=== PATIENT | female | born 1995 | race Caucasian/White ===

== ENCOUNTER 2021-08-30 08:27 | Observation (INO) | payer MEDICAID ==
[2021-08-30] MEDS ORDERED: GLYB2.5T8 PO (08:48)
[2021-08-30] MEDS ORDERED: METF-370 PO ×2 (08:48)
== END 2021-08-30 09:37 | disposition home or self-care (01) ==
LOC: UNDOADMOB 08:27 → LDRP 08:27 → UNDODISOB 09:37
PROVIDERS: ADMIT Obstetrics & Gynecology; ATTEND Obstetrics & Gynecology
DX: O24.419 Gestational diabetes mellitus in pregnancy, unspecified control (principal); Z3A.31 31 weeks gestation of pregnancy
CPT/HCPCS: 59025; 76818; 81002; 82948; 82962; 94760; G0378

== ENCOUNTER 2021-09-02 10:48 | Observation (INO) | payer MEDICAID ==
[~2021-09-02 10:48] MED LIST: GLYB2.5T8 PO; METF-370 PO
== END 2021-09-02 12:20 | disposition home or self-care (01) ==
LOC: LDRP 10:48 → UNDOADMOB 10:48 → LDRP 10:53 → UNDODISOB 12:20
PROVIDERS: ADMIT Obstetrics & Gynecology; ATTEND Obstetrics & Gynecology
DX: O24.419 Gestational diabetes mellitus in pregnancy, unspecified control (principal); Z3A.31 31 weeks gestation of pregnancy
CPT/HCPCS: 59025; 76818; 82948; 82962; 94760; G0378

== ENCOUNTER 2021-09-06 07:29 | Observation (INO) | payer MEDICAID | END 2021-09-06 13:36 | disposition home or self-care (01) | LOC: LDRP 11:09 → UNDOADMOB 11:18 → UNDODISOB 13:36 | PROVIDERS: ADMIT Obstetrics & Gynecology Obstetrics; ATTEND Obstetrics & Gynecology Obstetrics | DX: O24.419 Gestational diabetes mellitus in pregnancy, unspecified control (principal); Z3A.32 32 weeks gestation of pregnancy | CPT/HCPCS: 59025; 76818; 81002; 82948; 82962; 94760; G0378 ==

== ENCOUNTER 2021-09-09 07:58 | Observation (INO) | payer MEDICAID ==
[~2021-09-09] VITALS: Ht 160 cm; Wt 100.7 kg
[2021-09-09] MEDS ORDERED: PREN-96 PO (08:58)
== END 2021-09-09 09:46 | disposition home or self-care (01) ==
LOC: UNDOADMOB 07:58 → LDRP 07:58 → UNDODISOB 09:46
PROVIDERS: ADMIT Obstetrics & Gynecology; ATTEND Obstetrics & Gynecology
DX: O24.419 Gestational diabetes mellitus in pregnancy, unspecified control (principal); Z3A.32 32 weeks gestation of pregnancy
CPT/HCPCS: 59025; 76818; 81002; 82948; 82962; 94760; G0378

== ENCOUNTER 2021-09-14 07:33 | Observation (INO) | payer MEDICAID ==
[~2021-09-14] VITALS: Ht 160 cm; Wt 100.7 kg
[~2021-09-14 07:33] MED LIST changes: +PREN-96 PO
== END 2021-09-14 15:44 | disposition home or self-care (01) ==
LOC: LDRP 13:44 → UNDOADMOB 13:49 → UNDODISOB 15:44
PROVIDERS: ADMIT Obstetrics & Gynecology; ATTEND Obstetrics & Gynecology
DX: O24.419 Gestational diabetes mellitus in pregnancy, unspecified control (principal); Z3A.33 33 weeks gestation of pregnancy
CPT/HCPCS: 59025; 76818; 81002; 82948; 82962; 94760; G0378

== ENCOUNTER 2021-09-16 08:09 | Observation (INO) | payer MEDICAID ==
[~2021-09-16] VITALS: Ht 160 cm; Wt 100.7 kg
== END 2021-09-16 09:40 | disposition home or self-care (01) ==
LOC: LDRP 08:09 → UNDOADMOB 08:13 → LDRP 08:13 → UNDODISOB 09:40
PROVIDERS: ADMIT Obstetrics & Gynecology; ATTEND Obstetrics & Gynecology
DX: O24.419 Gestational diabetes mellitus in pregnancy, unspecified control (principal); O36.8930 Maternal care for other specified fetal problems, third trimester, not applicable or unspecified; Z3A.33 33 weeks gestation of pregnancy
CPT/HCPCS: 59025; 76818; 81002; 82948; 82962; G0378

== ENCOUNTER 2021-09-20 08:36 | Observation (INO) | payer MEDICAID | END 2021-09-20 10:07 | disposition home or self-care (01) | LOC: LDRP 08:59 → UNDOADMOB 09:06 → LDRP 09:06 → UNDODISOB 10:07 | PROVIDERS: ADMIT Obstetrics & Gynecology Obstetrics; ATTEND Obstetrics & Gynecology Obstetrics | DX: O24.415 Gestational diabetes mellitus in pregnancy, controlled by oral hypoglycemic drugs (principal); Z3A.34 34 weeks gestation of pregnancy; Z79.84 Long term (current) use of oral hypoglycemic drugs | CPT/HCPCS: 59025; 76818; 81002; 82948; 82962; 94760; G0378 ==

== ENCOUNTER 2021-09-23 08:49 | Observation (INO) | payer MEDICAID ==
[~2021-09-23] VITALS: Ht 160 cm; Wt 100.7 kg
== END 2021-09-23 17:02 | disposition home or self-care (01) ==
LOC: LDRP 14:35 → UNDOADMOB 14:45
PROVIDERS: ADMIT Obstetrics & Gynecology; ATTEND Obstetrics & Gynecology
DX: O24.419 Gestational diabetes mellitus in pregnancy, unspecified control (principal); O12.03 Gestational edema, third trimester; Z3A.34 34 weeks gestation of pregnancy
CPT/HCPCS: 59025; 76818; 81002; 82948; 82962; 94760; G0378

== ENCOUNTER 2021-09-27 10:00 | Observation (INO) | payer MEDICAID | END 2021-09-27 11:35 | disposition home or self-care (01) | LOC: UNDOADMOB 10:00 → LDRP 10:00 → UNDODISOB 11:35 | PROVIDERS: ADMIT Obstetrics & Gynecology Obstetrics; ATTEND Obstetrics & Gynecology Obstetrics | DX: O24.419 Gestational diabetes mellitus in pregnancy, unspecified control (principal); Z3A.35 35 weeks gestation of pregnancy | CPT/HCPCS: 59025; 76818; 81002; 82962; G0378 ==

== ENCOUNTER 2021-09-29 09:17 | Observation (INO) | payer MEDICAID ==
[~2021-09-29] VITALS: Ht 160 cm; Wt 104.8 kg
[2021-09-29 10:10] LABS: Basophils # (auto) 0 10 ^3/uL (0-0.2); Eosinophils # (auto) 0 10 ^3/uL (0-0.8); Monocytes # (auto) 0.5 10 ^3/uL (0-1.3); Neutrophils # (auto) 5.1 10 ^3/uL (1.6-8.6); Nucleated Red Blood Cells % 0.1 %
[2021-09-29 10:12] LABS: Basophils % (auto) 0.4 % (0.0-2.0); Eosinophils % (auto) 0.6 % (0.0-7.0); Hematocrit 29.5 % (36.0-46.0); Hemoglobin 9.6 g/dL (12.2-16.2); Lymphocytes % (auto) 26.4 % (10.0-50.0); Mean Corpuscular Hemoglobin 26.1 pg (28.0-32.0); Mean Corpuscular Hgb Conc. 32.6 g/dL (32.0-36.0); Mean Corpuscular Volume 79.9 fL (80.0-100.0); Monocytes % (auto) 6.5 % (0.0-12.0); Neutrophils % (auto) 66.1 % (37.0-80.0); Red Blood Cells 3.69 10^6/uL (4.0-5.20); Red Cell Distribution Width 15.7 % (11.8-14.3); White Blood Cell 7.7 10^3/uL (4.4-10.8)
[2021-09-29 10:31] LABS: Albumin 2.3 g/dL (3.4-5.0); Calcium 8.6 mg/dL (8.5-10.1)
[2021-09-29 10:35] LABS: BUN/Creatinine Ratio 8.8; Bilirubin, Total 0.2 mg/dL (0.2-1.0); Total Protein 6.4 g/dL (6.4-8.2); Uric Acid 4.6 mg/dL (2.6-6.0)
[2021-09-29 10:36] LABS: INR 0.87 (0.9-1.15); Partial Thromboplastin Time 27.7 sec (24.6-33.4)
[2021-09-29 10:37] LABS: Urine Bacteria FEW /hpf (None Seen); Urine Blood Negative /uL (Negative); Urine Mucus FEW (None Seen); Urine Specific Gravity 1.021 (1.001-1.035); Urine WBC 5 /hpf (0 - 5)
[2021-09-29 11:02] LABS: Protein, Urine 26.4 mg/dL (0.0-11.9)
== END 2021-09-29 11:35 | disposition home or self-care (01) ==
LOC: LDRP 09:17 → UNDOADMOB 09:17 → LDRP 09:36
PROVIDERS: ADMIT Obstetrics & Gynecology; ATTEND Obstetrics & Gynecology
DX: O24.419 Gestational diabetes mellitus in pregnancy, unspecified control (principal); O26.893 Other specified pregnancy related conditions, third trimester; R03.0 Elevated blood-pressure reading, without diagnosis of hypertension; Z3A.35 35 weeks gestation of pregnancy; Z79.899 Other long term (current) drug therapy
CPT/HCPCS: 36415; 59025; 80053; 81001; 81002; 82570; 82948; 82962; 84156; 84550; 85025; 85610; 85730; 94760; G0378

== ENCOUNTER 2021-10-01 11:15 | Observation (INO) | payer MEDICAID ==
[2021-10-01 16:07] LABS: Protein, Urine 12.1 mg/dL (0.0-11.9)
[2021-10-01 16:25] LABS: 24 Hr. Total Protein, Urine 260.1 mg/24 Hr (<149.1)
== END 2021-10-01 13:38 | disposition home or self-care (01) ==
LOC: UNDOADMOB 11:15 → LDRP 11:15
PROVIDERS: ADMIT Obstetrics & Gynecology; ATTEND Obstetrics & Gynecology
DX: O24.419 Gestational diabetes mellitus in pregnancy, unspecified control (principal); Z3A.35 35 weeks gestation of pregnancy
CPT/HCPCS: 59025; 76818; 81002; 82948; 82962; 84156; G0378

== ENCOUNTER 2021-10-04 08:20 | Observation (INO) | payer MEDICAID | END 2021-10-04 15:05 | disposition home or self-care (01) | LOC: UNDOADMOB 13:00 → LDRP 13:00 | PROVIDERS: ADMIT Obstetrics & Gynecology Obstetrics; ATTEND Obstetrics & Gynecology Obstetrics | DX: O24.419 Gestational diabetes mellitus in pregnancy, unspecified control (principal); O12.03 Gestational edema, third trimester; Z3A.36 36 weeks gestation of pregnancy | CPT/HCPCS: 59025; 76818; 81002; 82948; 82962; 94760; G0378 ==

== ENCOUNTER → 2021-10-06 | Outpatient (CLI) | payer MEDICAID ==
[2021-10-07 07:07] LABS: RPR Non Reactive (Non Reactive)
== END | disposition home or self-care (01) ==
LOC: LAB 09:32
PROVIDERS: ATTEND Obstetrics & Gynecology
DX: Z34.00 Encounter for supervision of normal first pregnancy, unspecified trimester (principal)
CPT/HCPCS: 84112; 86592

== ENCOUNTER 2021-10-11 07:34 | Observation (INO) | payer MEDICAID ==
[~2021-10-11] VITALS: Ht 160 cm; Wt 104.8 kg
[2021-10-11] MEDS ORDERED: FERR-20 PO (10:18)
== END 2021-10-11 09:25 | disposition home or self-care (01) ==
LOC: LDRP 09:00
PROVIDERS: ADMIT Obstetrics & Gynecology Obstetrics; ATTEND Obstetrics & Gynecology Obstetrics
DX: O24.419 Gestational diabetes mellitus in pregnancy, unspecified control (principal); Z3A.36 36 weeks gestation of pregnancy
CPT/HCPCS: 59025; 76818; 81002; 82948; 82962; 94760; G0378

== ENCOUNTER 2021-10-14 07:55 | Observation (INO) | payer MEDICAID ==
[~2021-10-14 07:55] MED LIST changes: +FERR-20 PO
[2021-10-14 10:20] LABS: Basophils # (auto) 0 10 ^3/uL (0-0.2); Eosinophils # (auto) 0.1 10 ^3/uL (0-0.8); Mean Corpuscular Hgb Conc. 31.7 g/dL (32.0-36.0); Monocytes # (auto) 0.6 10 ^3/uL (0-1.3); Neutrophils # (auto) 5.7 10 ^3/uL (1.6-8.6)
[2021-10-14 10:22] LABS: Basophils % (auto) 0.5 % (0.0-2.0); Eosinophils % (auto) 0.7 % (0.0-7.0); Hematocrit 31.6 % (36.0-46.0); Lymphocytes # (auto) 2.3 10 ^3/uL (0.4-5.4); Lymphocytes % (auto) 26.8 % (10.0-50.0); Mean Corpuscular Hemoglobin 25.6 pg (28.0-32.0); Mean Corpuscular Volume 80.8 fL (80.0-100.0); Nucleated Red Blood Cells % 0.1 %; Red Blood Cells 3.91 10^6/uL (4.0-5.20); Red Cell Distribution Width 16.5 % (11.8-14.3); White Blood Cell 8.7 10^3/uL (4.4-10.8)
[2021-10-14 10:26] LABS: Urine Bacteria MANY /hpf (None Seen); Urine Blood Negative /uL (Negative); Urine Budding Yeast FEW /hpf (None Seen); Urine Specific Gravity 1.007 (1.001-1.035); Urine WBC 46 /hpf (0 - 5)
[2021-10-14 10:35] LABS: INR 0.88 (0.9-1.15); Partial Thromboplastin Time 29.3 sec (24.6-33.4)
[2021-10-14 11:10] LABS: Albumin 2.6 g/dL (3.4-5.0); Calcium 8.7 mg/dL (8.5-10.1)
[2021-10-14 11:14] LABS: BUN/Creatinine Ratio 10.8; Bilirubin, Total 0.3 mg/dL (0.2-1.0); Total Protein 6.6 g/dL (6.4-8.2); Uric Acid 4.5 mg/dL (2.6-6.0)
[2021-10-14 11:58] LABS: Protein, Urine 14.1 mg/dL (0.0-11.9)
== END 2021-10-14 12:11 | disposition home or self-care (01) ==
LOC: LDRP 07:55
PROVIDERS: ADMIT Obstetrics & Gynecology; ATTEND Obstetrics & Gynecology
DX: O24.415 Gestational diabetes mellitus in pregnancy, controlled by oral hypoglycemic drugs (principal); O62.9 Abnormality of forces of labor, unspecified; Z3A.36 36 weeks gestation of pregnancy; Z79.84 Long term (current) use of oral hypoglycemic drugs
CPT/HCPCS: 36415; 59025; 76818; 80053; 81001; 82570; 82962; 84156; 84550; 85025; 85610; 85730; G0378; 81002; 82948

== ENCOUNTER 2021-10-17 10:07 | Observation (INO) | payer MEDICAID ==
[~2021-10-17] VITALS: Ht 30.5 cm; Wt 0.5 kg
[2021-10-17 11:05] LABS: Urine Bacteria FEW /hpf (None Seen); Urine Blood Negative /uL (Negative); Urine Mucus FEW (None Seen); Urine Specific Gravity 1.017 (1.001-1.035); Urine WBC 124 /hpf (0 - 5)
[2021-10-17 11:14] LABS: Protein, Urine 17.9 mg/dL (0.0-11.9)
[2021-10-17 11:39] LABS: Protein, Urine 46.2 mg/dL (0.0-11.9)
[2021-10-17 11:43] LABS: 24 Hr. Total Protein, Urine 313.2 mg/24 Hr (<149.1)
[2021-10-17] MEDS ORDERED: LACTATED RINGER'S 1,000 ML IV ONE (14:45)
[2021-10-17] MEDS ORDERED: LABETALOL HCL 200 MG TAB PO SCH (15:30)
[2021-10-17] MEDS ORDERED: LABE100T4 PO (18:37)
== END 2021-10-17 19:00 | disposition home or self-care (01) ==
LOC: LDRP 10:07
PROVIDERS: ADMIT Obstetrics & Gynecology; ATTEND Obstetrics & Gynecology
DX: O24.419 Gestational diabetes mellitus in pregnancy, unspecified control (principal); Z3A.37 37 weeks gestation of pregnancy; Z79.899 Other long term (current) drug therapy
CPT/HCPCS: 59025; 76818; 81001; 81002; 82570; 82948; 82962; 84156; 94762; 96360; 96361; G0378

== ENCOUNTER 2021-10-19 07:07 | Observation (INO) | payer MEDICAID ==
[~2021-10-19 07:07] MED LIST changes: +LABE100T4 PO
== END 2021-10-19 10:00 | disposition home or self-care (01) ==
LOC: LDRP 08:04 → UNDOADMOB 08:04 → LDRP 08:30
PROVIDERS: ADMIT Obstetrics & Gynecology; ATTEND Obstetrics & Gynecology
DX: O13.3 Gestational [pregnancy-induced] hypertension without significant proteinuria, third trimester (principal); O24.419 Gestational diabetes mellitus in pregnancy, unspecified control; Z3A.37 37 weeks gestation of pregnancy
CPT/HCPCS: 59025; 76818; 81002; 82948; 82962; 94760; G0378

== ENCOUNTER 2021-10-21 10:45 | Observation (INO) | payer MEDICAID ==
[~2021-10-21] VITALS: Ht 160 cm; Wt 107.0 kg
[2021-10-22 10:54] LABS: Basophils # (auto) 0 10 ^3/uL (0-0.2); Eosinophils # (auto) 0 10 ^3/uL (0-0.8); Lymphocytes # (auto) 1.8 10 ^3/uL (0.4-5.4); Monocytes # (auto) 0.5 10 ^3/uL (0-1.3); White Blood Cell 7.6 10^3/uL (4.4-10.8)
[2021-10-22 10:56] LABS: Basophils % (auto) 0.2 % (0.0-2.0); Eosinophils % (auto) 0.6 % (0.0-7.0); Hematocrit 31.1 % (36.0-46.0); Lymphocytes % (auto) 23.4 % (10.0-50.0); Mean Corpuscular Hemoglobin 26.5 pg (28.0-32.0); Mean Corpuscular Hgb Conc. 32.1 g/dL (32.0-36.0); Mean Corpuscular Volume 82.6 fL (80.0-100.0); Monocytes % (auto) 6.5 % (0.0-12.0); Neutrophils # (auto) 5.2 10 ^3/uL (1.6-8.6); Neutrophils % (auto) 69.3 % (37.0-80.0); Nucleated Red Blood Cells % 0.2 %; Red Blood Cells 3.77 10^6/uL (4.0-5.20); Red Cell Distribution Width 19.3 % (11.8-14.3)
[2021-10-22 11:08] LABS: INR 0.87 (0.9-1.15); Partial Thromboplastin Time 27.7 sec (24.6-33.4)
[2021-10-22 11:09] LABS: Albumin 2.6 g/dL (3.4-5.0); Calcium 8.8 mg/dL (8.5-10.1); Potassium 4.1 mmol/L (3.5-5.1)
[2021-10-22 11:17] LABS: BUN/Creatinine Ratio 9.5; Bilirubin, Total 0.3 mg/dL (0.2-1.0); Total Protein 6.3 g/dL (6.4-8.2); Uric Acid 5.5 mg/dL (2.6-6.0)
[2021-10-22 12:16] LABS: Urine Bacteria MOD /hpf (None Seen); Urine Blood Negative /uL (Negative); Urine Mucus FEW (None Seen); Urine Specific Gravity 1.029 (1.001-1.035); Urine WBC 25 /hpf (0 - 5)
[2021-10-22 12:30] LABS: Amphetamine Screen, Urine NEGATIVE (NEGATIVE); Barbiturate Scree,Urine NEGATIVE (NEGATIVE); Benzodiazephine Screen, Urine NEGATIVE (NEGATIVE); Cannabinoid Screen, Urine NEGATIVE (NEGATIVE); Cocaine Screen, Urine NEGATIVE (NEGATIVE); Opiate Scree,Urine NEGATIVE (NEGATIVE); Phencyclidine Screen, Urine NEGATIVE (NEGATIVE)
[2021-10-22 12:56] LABS: Protein, Urine 43.2 mg/dL (0.0-11.9)
[2021-10-23 07:06] LABS: RPR Non Reactive (Non Reactive)
== END 2021-10-22 14:18 | disposition home or self-care (01) ==
LOC: LDRP 10-22 10:04 → UNDOADMOB 10-22 10:04 → LDRP 10-22 10:24
PROVIDERS: ADMIT Obstetrics & Gynecology; ATTEND Obstetrics & Gynecology
DX: O24.419 Gestational diabetes mellitus in pregnancy, unspecified control (principal); O13.3 Gestational [pregnancy-induced] hypertension without significant proteinuria, third trimester; O12.03 Gestational edema, third trimester; Z3A.37 37 weeks gestation of pregnancy
CPT/HCPCS: 36415; 59025; 80053; 80307; 81001; 81002; 82570; 84156; 84550; 85025; 85610; 85730; 86592; 86850; 86900; 86901; 94760; G0378

== ENCOUNTER 2021-10-24 10:12 | Observation (INO) | payer MEDICAID ==
[2021-10-24 11:30] LABS: Basophils # (auto) 0 10 ^3/uL (0-0.2); Basophils % (auto) 0.3 % (0.0-2.0); Eosinophils # (auto) 0 10 ^3/uL (0-0.8); Eosinophils % (auto) 0.6 % (0.0-7.0); Hematocrit 30.4 % (36.0-46.0); Hemoglobin 9.9 g/dL (12.2-16.2); Lymphocytes # (auto) 2.3 10 ^3/uL (0.4-5.4); Lymphocytes % (auto) 28.6 % (10.0-50.0); Mean Corpuscular Hemoglobin 27.2 pg (28.0-32.0); Mean Corpuscular Hgb Conc. 32.4 g/dL (32.0-36.0); Mean Corpuscular Volume 83.9 fL (80.0-100.0); Monocytes # (auto) 0.6 10 ^3/uL (0-1.3); Neutrophils # (auto) 5.1 10 ^3/uL (1.6-8.6); Neutrophils % (auto) 63.5 % (37.0-80.0); Red Blood Cells 3.63 10^6/uL (4.0-5.20); Red Cell Distribution Width 20.1 % (11.8-14.3); White Blood Cell 8.1 10^3/uL (4.4-10.8)
[2021-10-24 11:42] LABS: Albumin 2.5 g/dL (3.4-5.0); Calcium 8.4 mg/dL (8.5-10.1); Potassium 3.8 mmol/L (3.5-5.1)
[2021-10-24 11:44] LABS: INR 0.88 (0.9-1.15); Partial Thromboplastin Time 29.3 sec (24.6-33.4)
[2021-10-24 11:47] LABS: Protein, Urine 38.9 mg/dL (0.0-11.9)
[2021-10-24 11:47] LABS: BUN/Creatinine Ratio 11.3; Bilirubin, Total 0.2 mg/dL (0.2-1.0); Total Protein 6.2 g/dL (6.4-8.2); Uric Acid 5.6 mg/dL (2.6-6.0)
== END 2021-10-24 12:17 | disposition home or self-care (01) ==
LOC: LDRP 10:12
PROVIDERS: ADMIT Obstetrics & Gynecology; ATTEND Obstetrics & Gynecology
DX: O13.3 Gestational [pregnancy-induced] hypertension without significant proteinuria, third trimester (principal); Z3A.38 38 weeks gestation of pregnancy
CPT/HCPCS: 36415; 59025; 80053; 81002; 82570; 84156; 84550; 85025; 85610; 85730; 94760; G0378

== ENCOUNTER 2021-10-26 07:41 | Observation (INO) | payer MEDICAID ==
[2021-10-26 15:53] LABS: Basophils # (auto) 0.1 10 ^3/uL (0-0.2); Eosinophils # (auto) 0 10 ^3/uL (0-0.8); Mean Corpuscular Hemoglobin 26.7 pg (28.0-32.0); Monocytes # (auto) 0.6 10 ^3/uL (0-1.3)
[2021-10-26 15:55] LABS: Basophils % (auto) 0.7 % (0.0-2.0); Eosinophils % (auto) 0.5 % (0.0-7.0); Hematocrit 32.3 % (36.0-46.0); Hemoglobin 10.4 g/dL (12.2-16.2); Lymphocytes # (auto) 2.1 10 ^3/uL (0.4-5.4); Lymphocytes % (auto) 23.5 % (10.0-50.0); Mean Corpuscular Hgb Conc. 32.2 g/dL (32.0-36.0); Monocytes % (auto) 6.4 % (0.0-12.0); Neutrophils % (auto) 68.9 % (37.0-80.0); Nucleated Red Blood Cells % 0.2 %; Red Blood Cells 3.89 10^6/uL (4.0-5.20); White Blood Cell 8.8 10^3/uL (4.4-10.8)
[2021-10-26 15:59] LABS: Red Cell Distribution Width 20.5 % (11.8-14.3)
[2021-10-26 16:08] LABS: Urine Bacteria FEW /hpf (None Seen); Urine Blood 1+ /uL (Negative); Urine Mucus FEW (None Seen); Urine Specific Gravity 1.018 (1.001-1.035); Urine WBC 1 /hpf (0 - 5)
[2021-10-26 16:13] LABS: Amphetamine Screen, Urine NEGATIVE (NEGATIVE); Barbiturate Scree,Urine NEGATIVE (NEGATIVE); Benzodiazephine Screen, Urine NEGATIVE (NEGATIVE); Cannabinoid Screen, Urine NEGATIVE (NEGATIVE); Cocaine Screen, Urine NEGATIVE (NEGATIVE); Opiate Scree,Urine NEGATIVE (NEGATIVE); Phencyclidine Screen, Urine NEGATIVE (NEGATIVE)
[2021-10-26 16:16] LABS: Albumin 2.6 g/dL (3.4-5.0); Potassium 4.1 mmol/L (3.5-5.1); Uric Acid 5.3 mg/dL (2.6-6.0)
[2021-10-26 16:19] LABS: BUN/Creatinine Ratio 14.5; Bilirubin, Total 0.2 mg/dL (0.2-1.0); Total Protein 6.4 g/dL (6.4-8.2)
[2021-10-26 16:31] LABS: INR 0.87 (0.9-1.15); Partial Thromboplastin Time 29.1 sec (24.6-33.4)
[2021-10-27 06:06] LABS: RPR Non Reactive (Non Reactive)
== END 2021-10-26 15:36 | disposition home or self-care (01) ==
LOC: LDRP 13:33 → UNDOADMOB 13:33 → LDRP 13:45
PROVIDERS: ADMIT Obstetrics & Gynecology; ATTEND Obstetrics & Gynecology
DX: O24.419 Gestational diabetes mellitus in pregnancy, unspecified control (principal); Z20.822 Contact with and (suspected) exposure to COVID-19; O13.3 Gestational [pregnancy-induced] hypertension without significant proteinuria, third trimester; Z3A.38 38 weeks gestation of pregnancy; Z79.899 Other long term (current) drug therapy
CPT/HCPCS: 36415; 59025; 76818; 80053; 80307; 81001; 81002; 82948; 82962; 84550; 85025; 85610; 85730; 86592; 86850; 86900; 86901; 87426; 94760; G0378

== ENCOUNTER 2021-10-28 06:32 | Inpatient (IN) | payer MEDICAID ==
[~2021-10-28] VITALS: Ht 160 cm; Wt 106.6 kg
[2021-10-28] MEDS ORDERED: LIDOCAINE 2%HCL (LOCAL ANESTH.) INJ 10ml MDV IJ PRN (07:00)
[2021-10-28] MEDS ORDERED: PHISODERM TOP SOLN 240ML BTL TOP PRN (07:00)
[2021-10-28] MEDS ORDERED: WITCH HAZEL-GLYCERIN PAD TOP PRN (07:00)
[2021-10-28] MEDS ORDERED: DERMOPLAST 60ML BOTTLE TOP PRN (07:00)
[2021-10-28] MEDS ORDERED: BUTORPHANOL TARTRATE 2 MG/1 ML VIAL IV PRN ×2 (07:00)
[2021-10-28] MEDS ORDERED: PROMETHAZINE HCL 25 MG/ML 1ML IV PRN (07:00)
[2021-10-28] MEDS ORDERED: LACTATED RINGER'S 1,000 ML IV SCH (07:00)
[2021-10-28 08:14] LABS: Basophils # (auto) 0 10 ^3/uL (0-0.2); Hemoglobin 9.9 g/dL (12.2-16.2); Neutrophils # (auto) 4.9 10 ^3/uL (1.6-8.6); Nucleated Red Blood Cells % 0.1 %; Red Blood Cells 3.68 10^6/uL (4.0-5.20); White Blood Cell 8.1 10^3/uL (4.4-10.8)
[2021-10-28 08:15] LABS: Basophils % (auto) 0.2 % (0.0-2.0); Eosinophils # (auto) 0 10 ^3/uL (0-0.8); Eosinophils % (auto) 0.6 % (0.0-7.0); Hematocrit 30.8 % (36.0-46.0); Lymphocytes # (auto) 2.6 10 ^3/uL (0.4-5.4); Lymphocytes % (auto) 32.2 % (10.0-50.0); Mean Corpuscular Hgb Conc. 32.2 g/dL (32.0-36.0); Mean Corpuscular Volume 83.7 fL (80.0-100.0); Monocytes # (auto) 0.5 10 ^3/uL (0-1.3); Monocytes % (auto) 6.3 % (0.0-12.0); Neutrophils % (auto) 60.7 % (37.0-80.0)
[2021-10-28 08:22] LABS: Albumin 2.4 g/dL (3.4-5.0); Calcium 8.2 mg/dL (8.5-10.1); Potassium 4.1 mmol/L (3.5-5.1)
[2021-10-28 08:25] LABS: BUN/Creatinine Ratio 17.6; Bilirubin, Total 0.3 mg/dL (0.2-1.0)
[2021-10-28] MEDS ORDERED: LABETALOL HCL 200 MG TAB PO ONE (08:30)
[2021-10-28 08:31] LABS: Red Cell Distribution Width 20.5 % (11.8-14.3)
[2021-10-28 08:35] LABS: Alcohol, Urine < 3.0 mg/dL (0-10); Amphetamine Screen, Urine NEGATIVE (NEGATIVE); Barbiturate Scree,Urine NEGATIVE (NEGATIVE); Benzodiazephine Screen, Urine NEGATIVE (NEGATIVE); Cannabinoid Screen, Urine NEGATIVE (NEGATIVE); Cocaine Screen, Urine NEGATIVE (NEGATIVE); Opiate Scree,Urine NEGATIVE (NEGATIVE); Phencyclidine Screen, Urine NEGATIVE (NEGATIVE)
[2021-10-28 08:40] LABS: INR 0.89 (0.9-1.15); Partial Thromboplastin Time 29.9 sec (24.6-33.4)
[2021-10-28 09:40] LABS: Urine Bacteria MOD /hpf (None Seen); Urine Blood 2+ /uL (Negative); Urine Mucus FEW (None Seen); Urine WBC 20 /hpf (0 - 5)
[2021-10-28] MEDS: SODIUM CHLORIDE 0.9% 1,000 ML IV SCH ×4 (09:59→23:47)
[2021-10-28] MEDS ORDERED: ACCU-CHEK COMFORT CURVE STRIP VI SCH (10:00)
[2021-10-28 10:47] LABS: Protein, Urine 82.1 mg/dL (0.0-11.9)
[2021-10-28] MEDS ORDERED: LACT. RINGERS/OXYTOCIN 20UNITS 1,000 ML IV SCH (11:30)
[2021-10-28] MEDS ORDERED: LACT. RINGERS/OXYTOCIN 20UNITS 500 ML IV ONE ×2 (11:30→12:00)
[2021-10-28] MEDS ORDERED: TERBUTALINE SULFATE 1 MG/ML 1ML VIAL SC PRN (11:30)
[2021-10-28] MEDS: LABETALOL HCL 200 MG TAB PO SCH (20:53)
[2021-10-28] MEDS ORDERED: LABETALOL HCL 200 MG TAB PO SCH (21:00)
[2021-10-28] MEDS ORDERED: ePHEDrine SULFATE 50 MG/ML AMP IV ONE (22:30)
[2021-10-28] MEDS ORDERED: ROPIVACAINE HCL 200 ML EPI SCH ×2 (22:30→23:15)
[2021-10-28] MEDS ORDERED: fentaNYL CITRATE 100 MCG/2 ML VL IV ONE (22:30)
[2021-10-28] MEDS ORDERED: NALOXONE HCL 0.4 MG/ML VIAL IV ONE (22:30)
[2021-10-28] MEDS ORDERED: SODIUM CHLORIDE 0.9% 500 ML IV ONE (22:45)
[2021-10-29] MEDS ORDERED: ACETAMINOPHEN 325 MG TAB PO PRN (05:30)
[2021-10-29] MEDS ORDERED: ONDANSETRON ODT 4 MG TAB PO PRN (05:30)
[2021-10-29 07:07] VITALS: BP 122/56
[2021-10-29 08:06] LABS: RPR Non Reactive (Non Reactive)
[2021-10-29 11:04] VITALS: BP 141/68
[2021-10-29] MEDS: IBUPROFEN 600 MG TAB PO PRN ×2 (11:32→22:25)
[2021-10-29 14:57] VITALS: BP 130/73
[2021-10-29 19:30] VITALS: BP 142/71
[2021-10-29] MEDS ORDERED: DOCUSATE SOD 100 MG CAP PO SCH (22:00)
[2021-10-29] MEDS: LABETALOL HCL 200 MG TAB PO SCH (22:25)
[2021-10-29 23:00] VITALS: BP 144/80
[2021-10-30 03:00] VITALS: BP 122/64
[2021-10-30 06:59] VITALS: BP 140/79
== END 2021-10-30 09:18 | disposition home or self-care (01) | DRG 560 ==
LOC: LDRP 06:32 → OBSVTOIN 06:55 → LDRP 07:40
PROVIDERS: ADMIT Obstetrics & Gynecology; ATTEND Obstetrics & Gynecology
PROC: 10E0XZZ Delivery of Products of Conception, External Approach (ICD-10-PCS; principal; 2021-10-29)
PROC: 0HQ9XZZ Repair Perineum Skin, External Approach (ICD-10-PCS; 2021-10-29)
PROC: 3E0R3BZ Introduction of Anesthetic Agent into Spinal Canal, Percutaneous Approach (ICD-10-PCS; 2021-10-29)
PROC: 00HU33Z Insertion of Infusion Device into Spinal Canal, Percutaneous Approach (ICD-10-PCS; 2021-10-29)
DX: O69.81X0 Labor and delivery complicated by cord around neck, without compression, not applicable or unspecified (principal); Z37.0 Single live birth; O24.429 Gestational diabetes mellitus in childbirth, unspecified control; O13.4 Gestational [pregnancy-induced] hypertension without significant proteinuria, complicating childbirth; O99.214 Obesity complicating childbirth; Z20.822 Contact with and (suspected) exposure to COVID-19; O70.0 First degree perineal laceration during delivery; Z3A.38 38 weeks gestation of pregnancy
CPT/HCPCS: 36415; 59025; 59409; 62282; 80053; 80307; 81001; 81002; 82570; 82948; 82962; 84156; 84550; 85025; 85610; 85730; 86592; 86850; 86900; 86901; 94760; 94762; 96360; 96361; 96365; 96366; 96374; 96375; G0378; J2590